=== PATIENT | male | born 1955 | race Caucasian/White ===

== ENCOUNTER 2016-12-01 13:13 | Emergency (ER) | payer OTHER ==
[~2016-12-01] VITALS: Ht 188 cm; Wt 113.4 kg
[2016-12-01 13:16] VITALS: BP 118/75
--- NOTE | 2016-12-01 13:23 | ED EYE COMPLAINT ---
History of Present Illness General Chief Complaint: Eye Problems Stated Complaint: R EYE SWELLING Source: patient Exam Limitations: no limitations Vital Signs & Intake/Output Vital Signs & Intake/Output Vital Signs Date Time Temp Pulse Resp B/P B/P Pulse O2 O2 Flow FiO2 Mean Ox Delivery Rate 12/01 1316 97.8 72 18 118/75 97 Room Air Room Air Allergies Coded Allergies: Sulfa (Sulfonamide Antibiotics) (Intermediate, THROAT TINGLES 12/01/16) Reconcile Medications Erythromycin Base (Erythromycin) 5 MG/GRAM (0.5 %) OINT...G. 1 OTTO OPH 4XDP BLEPHARITIS apply 1 cm ribbon into the lower/UPPER conjunctival sac Triage Note: TRIAGE: 61 Y/O MALE PRESENTS C/O 2/10 RIGHT EYE DULL PAIN SINCE THIS MORNING. REPORT SHAD A STYE LAST WEEK AND IT RESOLVED, NOW HAS RIGHT EYE REDNESS AND SWELLING. Triage Nurses Notes Reviewed? yes Onset: Abrupt Duration: constant Timing: single episode today Severity: mild Severity Numbers: 3 No Modifying Factors: none Right Eye Associated Symptoms: pain HPI: Patient is a 61-year-old male who presents to emergency room stating that last week he had a stye to the right inferior eyelid that has significantly improved however he woke up this morning with concerns of a stye to superior lateral aspect of his right eyelid. Patient has searches symptoms of eyelid swelling. Denies any contact lens wear. Denies any blurred vision or eye injection red eye discharge fever chills. Past History Travel History Traveled to [place] past 21 day No Medical History Any Pertinent Medical History? see below for history Neurological: NONE EENT: NONE Cardiovascular: NONE Respiratory: NONE Gastrointestinal: GERD Hepatic: NONE Renal: NONE Musculoskeletal: NONE Psychiatric: NONE Endocrine: hypothyroidism Blood Disorders: NONE Cancer(s): NONE Surgical History Surgical History: non-contributory Psychosocial History What is your primary language Palestinian Tobacco Use: Never used ETOH Use: occasional use Illicit Drug Use: denies illicit drug use Family History Hx Contributory? No Review of Systems Review of Systems Constitutional: Reports: no symptoms. Eyes: Reports: see HPI, foreign body sensation, pain. Denies: blindness, blurred vision, drainage, photophobia, previous injury, tunnel vision, vision change. Ear: Reports: no symptoms. Nose: Reports: no symptoms. Mouth: Reports: no symptoms. Throat: Reports: no symptoms. Respiratory: Reports: no symptoms. Cardiovascular: Reports: no symptoms. GI: Reports: no symptoms. Genitourinary: Reports: no symptoms. Musculoskeletal: Reports: no symptoms. Skin: Reports: no symptoms. Neurological/Psychological: Reports: no symptoms. Hematologic/Endocrine: Reports: no symptoms. Immunologic/Allergic: Reports: no symptoms. All Other Systems: Reviewed and Negative Physical Exam General Appearance: well developed/nourished, no apparent distress, alert General Inspection: normal inspection Eyelid: normal inspection, everted for exam Conjunctiva/Sclera: normal inspection Cornea: normal inspection EOM: intact Pupil: normal accommodation, normal pupil, PERRL General Inspection: NOTED SUPERIOR LATERAL LID SWELLING Eyelid: stye, STYENOTED TO LATERAL SUPERIOR EYELID nOTED SUPERIOR AND INFERIOR INJECTION OF THE EYELID. Conjunctiva/Sclera: normal inspection Cornea: normal inspection EOM: intact Pupil: normal accommodation, normal pupil, PERRL Physical Exam Head: atraumatic Ears: Bilateral: canal normal. Nose: normal inspection Mouth/Throat: normal mouth inspection Neck: normal inspection, supple, full range of motion Cardiovascular/Respiratory: normal breath sounds Neurologic/Psych: no motor/sensory deficits Skin: intact, normal color, warm/dry Progress Differential Diagnosis: corneal abrasion, corneal foreign body, conjunctivitis, detached retina, glaucoma, globe rupture, retinal art./v. occlusion, STYE, FB, BLEPHARITIS Plan of Care: Due to history of present illness and exam findings patient has concerns of blepharitis and a stye to the right superior lid of his eye. Conjunctiva was unremarkable. Patient was PERRLA Departure Departure Disposition: HOME OR SELF CARE Condition: Stable Clinical Impression Primary Impression: Hordeolum externum of right eye Secondary Impressions: Blepharitis of eyelid of right eye Referrals: LASHELL PIRES,JULIO WALLER MD,NINA Winkler Additional Instructions: As discussed begin the prescription of erythromycin ointment as directed. Prescription is waiting [facility]T [facility] pharmacy. If symptoms worsen return to emergency room. If no better on Saturday follow-up with your dowel pin man or dowel pin man Dr. Waller. BEGIN to apply warm compresses to the area to improve symptoms Departure Forms: Customer Survey General Discharge Information Prescriptions: Current Visit Scripts Erythromycin Base (Erythromycin) 1 OTTO OPH 4XDP #3.5 GM apply 1 cm ribbon into the lower/UPPER conjunctival sac
[2016-12-01] MEDS ORDERED: ERYTHROMYCIN1 GM OPH (13:39)
== END 2016-12-01 14:00 ==
LOC: ERH 13:13
DX: H00.011 Hordeolum externum right upper eyelid (principal); H01.003 Unspecified blepharitis right eye, unspecified eyelid